=== PATIENT | female | born 1995 | race Caucasian/White ===

== ENCOUNTER 2023-10-22 01:25 | Emergency (ER) | payer OTHER ==
[~2023-10-22] VITALS: Ht 167.6 cm; Wt 82.6 kg
[2023-10-22 01:32] VITALS: BP 119/73; PULSE 104; RESP 18; TEMP 97.6; O2SAT 98
[2023-10-22 02:07] LABS: APPEARANCE,URINE CLEAR (CLEAR); BILIRUBIN,URINE NEGATIVE (NEGATIVE); BLOOD, URINE NEGATIVE (NEGATIVE); COLOR,URINE YELLOW (YELLOW); LEUKOCYTE ESTERASE ,URINE NEGATIVE (NEGATIVE); NITRITE, URINE NEGATIVE (NEGATIVE); PH,URINE 8.5 (5.0-9.0); PROTEIN,URINE NEGATIVE (NEGATIVE); UGLUCOSE NEGATIVE (NEGATIVE); UROBILINOGEN,URINE 0.2 EU/dL (0.2 - 1)
[2023-10-22 02:30] VITALS: BP 116/70; PULSE 100; RESP 18; TEMP 97.6; O2SAT 98
[2023-10-22] MEDS ORDERED: ONDA-188 SL (02:52)
== END 2023-10-22 02:59 | disposition home or self-care (01) ==
LOC: MED 01:25
DX: R10.13 Epigastric pain (principal); R10.30 Lower abdominal pain, unspecified; R11.0 Nausea; Z79.1 Long term (current) use of non-steroidal anti-inflammatories (NSAID)
CPT/HCPCS: 81003; 81025; 99283